=== PATIENT | male | born 1945 | race African-American/Black ===

== ENCOUNTER → 2017-02-07 | Outpatient (CLI) | payer MEDICARE, OTHER ==
[~2017-02-07] MED LIST: AML5T PO; AMOX-263 PO
[2017-02-07 14:50] LABS: Basophils # (auto) 0 uL; Basophils % (auto) 0.2 % (0.0-2.0); CONDITION Y; Eosinophils # (auto) 0.1 uL; Eosinophils % (auto) 1.7 % (0.0-7.0); Hematocrit 46.8 % (41.0-53.0); Hemoglobin 15.8 g/dL (13.5-17.5); Lymphocytes # (auto) 1.4 uL; Lymphocytes % (auto) 29.1 % (10.0-50.0); Mean Corpuscular Hemoglobin 30.7 pg (28.0-32.0); Mean Corpuscular Hgb Conc. 33.8 g/dL (32.0-36.0); Mean Corpuscular Volume 90.8 fL (80.0-100.0); Mean Platelet Volume 8.3 fL (6.9-10.8); Monocytes # (auto) 0.5 uL; Monocytes % (auto) 10.4 % (0.0-12.0); Neutrophils # (auto) 2.8 uL; Neutrophils % (auto) 58.6 % (37.0-80.0); Platelet Count (auto) 202 10^3/uL (140-450); Red Cell Distribution Width 14.4 % (11.8-14.3); White Blood Cell 4.8 10^3/uL (4.4-10.8)
[2017-02-07 15:23] LABS: Albumin 4.3 g/dL (3.4-5.0); BUN/Creatinine Ratio 12.9; Bilirubin, Total 0.7 mg/dL (0.2-1.0); Calcium 9.7 mg/dL (8.5-10.1); Potassium 3.9 mmol/L (3.5-5.1); Total Protein 8.5 g/dL (6.4-8.2)
[2017-02-07 15:55] LABS: Urine Bilirubin Negative (Negative); Urine Blood Negative /uL (Negative); Urine Color Yellow (Yellow); Urine Glucose Normal (Normal); Urine Ketone Negative (Negative); Urine Mucus FEW (None Seen); Urine Nitrite Negative (Negative); Urine RBC 4 /hpf (0 - 3); Urine Sperm PRESENT /hpf (None Seen); Urine Squamous Epithelial Cell FEW /hpf (<5); Urine pH 5.5 (5.0-8.0)
== END | disposition home or self-care (01) ==
LOC: LAB 14:18
PROVIDERS: ATTEND Internal Medicine
DX: E78.5 Hyperlipidemia, unspecified (principal); I12.9 Hypertensive chronic kidney disease with stage 1 through stage 4 chronic kidney disease, or unspecified chronic kidney disease; N18.9 Chronic kidney disease, unspecified; E11.9 Type 2 diabetes mellitus without complications
CPT/HCPCS: 36415; 80053; 80061; 81001; 82306; 82607; 84443; 85025

== ENCOUNTER → 2017-07-05 | Outpatient (CLI) | payer MEDICARE, OTHER | END | disposition home or self-care (01) | LOC: LAB 13:09 | PROVIDERS: ATTEND Urology | DX: N40.0 Benign prostatic hyperplasia without lower urinary tract symptoms (principal); N21.0 Calculus in bladder; Z90.79 Acquired absence of other genital organ(s) | CPT/HCPCS: 84153; 87086; 87088; 87186 ==

== ENCOUNTER → 2017-08-30 | Outpatient (CLI) | payer MEDICARE, OTHER | END | disposition home or self-care (01) | LOC: LAB 13:28 | PROVIDERS: ATTEND Urology | DX: N40.0 Benign prostatic hyperplasia without lower urinary tract symptoms (principal); I12.0 Hypertensive chronic kidney disease with stage 5 chronic kidney disease or end stage renal disease; E11.22 Type 2 diabetes mellitus with diabetic chronic kidney disease; N18.5 Chronic kidney disease, stage 5 | CPT/HCPCS: 84153 ==

== ENCOUNTER → 2018-02-23 | Outpatient (CLI) | payer MEDICARE, OTHER | END | disposition home or self-care (01) | LOC: LAB 10:29 | PROVIDERS: ATTEND Urology | DX: N40.0 Benign prostatic hyperplasia without lower urinary tract symptoms (principal); R97.20 Elevated prostate specific antigen [PSA] | CPT/HCPCS: 84153 ==

== ENCOUNTER → 2018-09-15 | Outpatient (CLI) | payer MEDICARE, OTHER | END | disposition home or self-care (01) | LOC: LAB 11:18 | PROVIDERS: ATTEND Internal Medicine | DX: R97.20 Elevated prostate specific antigen [PSA] (principal) | CPT/HCPCS: 84153 ==

== ENCOUNTER → 2018-11-09 | Outpatient (CLI) | payer MEDICARE, OTHER | END | disposition home or self-care (01) | LOC: XYW 09:46 | PROVIDERS: ATTEND Internal Medicine | DX: I35.1 Nonrheumatic aortic (valve) insufficiency (principal); I12.9 Hypertensive chronic kidney disease with stage 1 through stage 4 chronic kidney disease, or unspecified chronic kidney disease; N18.9 Chronic kidney disease, unspecified | CPT/HCPCS: 93306 ==

== ENCOUNTER → 2019-01-15 | Outpatient (CLI) | payer OTHER, MEDICAID ==
[~2019-01-15] VITALS: Ht 172.7 cm; Wt 72.6 kg
[~2019-01-15] MED LIST changes: +ADENOSINE 61 MG in GIVE UN-DILUTED 0 ML IV STA
[2019-01-15 12:05] VITALS: BP 144/78
== END | disposition home or self-care (01) ==
LOC: XY 11:16
PROVIDERS: ATTEND Internal Medicine
DX: I12.9 Hypertensive chronic kidney disease with stage 1 through stage 4 chronic kidney disease, or unspecified chronic kidney disease (principal); N18.9 Chronic kidney disease, unspecified
CPT/HCPCS: 78452; 93017; A9500; J0153

== ENCOUNTER → 2019-06-05 | Outpatient (CLI) | payer OTHER, MEDICAID ==
[~2019-06-05] MED LIST changes: -ADENOSINE 61 MG in GIVE UN-DILUTED 0 ML IV STA
== END | disposition home or self-care (01) ==
LOC: LAB 11:39
PROVIDERS: ATTEND Internal Medicine
DX: N40.0 Benign prostatic hyperplasia without lower urinary tract symptoms (principal); R97.20 Elevated prostate specific antigen [PSA]
CPT/HCPCS: 84153

== ENCOUNTER 2021-03-12 20:11 | Inpatient (IN) | payer OTHER, MEDICAID ==
[~2021-03-12] VITALS: Ht 172.7 cm; Wt 74.2 kg
[~2021-03-12 20:11] MED LIST changes: -AML5T PO; -AMOX-263 PO; +LABE200T7 PO; +LISI20TA28 PO; +NIFE90TA49 PO
[2021-03-12] MEDS ORDERED: SODIUM CHLORIDE 0.9% 500 ML IV ONE (20:45)
[2021-03-12 22:34] LABS: Hematocrit 34.8 % (41.0-53.0); Hemoglobin 11.3 g/dL (13.5-17.5); Mean Corpuscular Hemoglobin 27.3 pg (28.0-32.0); Mean Corpuscular Hgb Conc. 32.3 g/dL (32.0-36.0); Mean Corpuscular Volume 84.5 fL (80.0-100.0); Red Blood Cells 4.12 10^6/uL (4.5-5.90); Red Cell Distribution Width 15.6 % (11.8-14.3); White Blood Cell 4.4 10^3/uL (4.4-10.8)
[2021-03-12 22:40] LABS: Basophils % (manual) 0 (0.0-2.0); Blast Cells 0; Eosinophils % (manual) 0 (0-7); Myelocytes % 0; Promyelocytes % 0; Reactive Lymphocytes 0
[2021-03-12 22:51] LABS: Albumin 3.2 g/dL (3.4-5.0); Anion Gap 8 (5-15); Blood Urea Nitrogen 66 mg/dL (7-18); Calcium 9.4 mg/dL (8.5-10.1); Carbon Dioxide 19 mmol/L (21-32); Chloride 108 mmol/L (98-107); Glucose 112 mg/dL (74-106); Potassium 4.2 mmol/L (3.5-5.1); Sodium 135 mmol/L (136-145)
[2021-03-12 22:58] LABS: Alanine Aminotransferase 26 U/L (16-61); Alkaline Phosphatase 77 U/L (45-117); Aspartate Aminotransferase 44 U/L (15-37); BUN/Creatinine Ratio 23.5; Bilirubin, Total 0.3 mg/dL (0.2-1.0); GFR African American 28 mL/min; GFR Non-African American 23 mL/min; Total Protein 7.7 g/dL (6.4-8.2)
[2021-03-12 23:28] LABS: Band Neutrophils % (manual) 7; Lymphocytes % (manual) 27 (10.0-50.0); Metamyelocytes % 1; Monocytes % (manual) 14 (0-12)
[2021-03-13] MEDS ORDERED: NITR-87 PO (00:26)
[2021-03-13] MEDS ORDERED: ACETAMINOPHEN 325 MG TAB PO ONE (03:45)
[2021-03-13] MEDS ORDERED: ONDANSETRON HCL 4 MG/2 ML VIAL IV PRN ×2 (04:15→23:00)
[2021-03-13] MEDS ORDERED: NITROGLYCERIN 0.4 MG SL TAB SL PRN (04:15)
[2021-03-13] MEDS ORDERED: DOCUSATE SOD 100 MG CAP PO PRN (04:15)
[2021-03-13] MEDS ORDERED: MORPHINE SULFATE INJECTION 2 MG/ML SYRG IV PRN ×2 (04:15→12:30)
[2021-03-13] MEDS ORDERED: HYDROcodone-ACET 5/325MG TAB PO PRN ×2 (04:15→12:30)
[2021-03-13 06:03] LABS: Hemoglobin 11.2 g/dL (13.5-17.5); Mean Corpuscular Hemoglobin 27.3 pg (28.0-32.0); Mean Corpuscular Hgb Conc. 31.1 g/dL (32.0-36.0); Mean Corpuscular Volume 87.9 fL (80.0-100.0); Red Blood Cells 4.09 10^6/uL (4.5-5.90); Red Cell Distribution Width 15.5 % (11.8-14.3); White Blood Cell 5.8 10^3/uL (4.4-10.8)
[2021-03-13 06:08] LABS: Basophils % (manual) 0 (0.0-2.0); Blast Cells 0; Eosinophils % (manual) 0 (0-7); Metamyelocytes % 0; Myelocytes % 0; Promyelocytes % 0; Reactive Lymphocytes 0
[2021-03-13 06:27] LABS: Albumin 3.1 g/dL (3.4-5.0); BUN/Creatinine Ratio 22.1; Calcium 9.3 mg/dL (8.5-10.1); Potassium 4.4 mmol/L (3.5-5.1)
[2021-03-13 06:30] LABS: Bilirubin, Total 0.5 mg/dL (0.2-1.0); Total Protein 7.2 g/dL (6.4-8.2)
[2021-03-13] MEDS: SODIUM CHLOR 0.9% PF (SALINE LOCK) 10ML VIAL/SYR IV SCH ×4 (06:32→22:19)
[2021-03-13 09:00] VITALS: BP 155/87
[2021-03-13] MEDS: MULTIPLE VITAMIN TAB PO SCH (09:21)
[2021-03-13] MEDS ORDERED: HEPARIN SODIUM (PORCINE) 5000 UNITS/ML 1ML VIAL SC SCH (10:00)
[2021-03-13] MEDS ORDERED: ZINC SULFATE 220mg CAP or TAB PO SCH (10:00)
[2021-03-13] MEDS ORDERED: ASCORBIC ACID 500 MG TAB PO SCH (10:00)
[2021-03-13 10:08] LABS: Band Neutrophils % (manual) 1; Lymphocytes % (manual) 22 (10.0-50.0); Monocytes % (manual) 20 (0-12)
[2021-03-13] MEDS: FAMOTIDINE (10MG/ML) 2ML VL IV SCH (11:27)
[2021-03-13] MEDS ORDERED: LISI-285 PO (11:51)
[2021-03-13] MEDS ORDERED: ATOR-47 PO (11:51)
[2021-03-13] MEDS ORDERED: FINASTERIDE 5 MG TAB PO ONE (12:30)
[2021-03-13] MEDS ORDERED: ERTAPENEM SOD INJ 0.5 GM in SODIUM CHL 0.9% 50 ML IV ONE (13:00)
[2021-03-13 13:18] VITALS: BP 163/80
[2021-03-13] MEDS ORDERED: LIDOCAINE 2% JELLY 11ml (GLYDO) UR ONE (13:45)
[2021-03-13] MEDS ORDERED: LIDOCAINE 1% (LOCAL ANESTH.) PF 5ml SDV ONE (14:03)
[2021-03-13] MEDS: SODIUM CHLORIDE 0.9% 1,000 ML IV SCH (14:03)
[2021-03-13] MEDS ORDERED: HYDROmorphone HCL 2 MG/ML VL IV ONE (15:00)
[2021-03-13] MEDS: TAMSULOSIN HYDROCHLORIDE 0.4 MG CAP PO SCH (16:51)
[2021-03-13 17:00] VITALS: BP 89/52
[2021-03-13 19:17] LABS: Urine Blood 3+ /uL (Negative); Urine Specific Gravity 1.012 (1.001-1.035); Urine WBC 235 /hpf (0 - 3)
[2021-03-13 19:33] LABS: Urine Bacteria MODERATE /hpf (None Seen)
[2021-03-13] MEDS ORDERED: PROPOFOL 10 MG/ML 20 ML IV ONE (20:49)
[2021-03-13] MEDS ORDERED: HYDROmorphone HCL 2 MG/ML VL ONE (21:34)
[2021-03-13] MEDS ORDERED: ONDANSETRON HCL 4 MG/2 ML VIAL ONE (22:01)
[2021-03-13] MEDS ORDERED: PHENYLEPHRINE HCL 10 MG/ML VL ONE (22:01)
[2021-03-13] MEDS ORDERED: DexAMETHasone SOD PHOS 10MG/1ML VIAL INJ ONE (22:01)
[2021-03-13] MEDS ORDERED: SODIUM CHLORIDE LOCK 10 ML ONE (22:01)
[2021-03-13] MEDS ORDERED: ceFAZolin 1GM VL ONE (22:01)
[2021-03-13] MEDS ORDERED: METOCLOPRAMIDE HCL 5MG/ml INJ 2ml VIAL IV PRN (23:00)
[2021-03-13] MEDS ORDERED: fentaNYL CITRATE 100 MCG/2 ML VL IV PRN (23:00)
[2021-03-13] MEDS ORDERED: HYDROmorphone HCL 2 MG/ML VL IV PRN ×2 (23:00)
[2021-03-13] MEDS ORDERED: ePHEDrine SULFATE 50 MG/ML AMP IV PRN (23:00)
[2021-03-14 05:00] VITALS: BP 119/62
[2021-03-14] MEDS: SODIUM CHLORIDE 0.9% 1,000 ML IV SCH ×2 (05:04→16:43)
[2021-03-14 05:36] LABS: Basophils # (auto) 0 10 ^3/uL (0-0.2); Basophils % (auto) 0.1 % (0.0-2.0); Eosinophils # (auto) 0 10 ^3/uL (0-0.8); Hematocrit 29.6 % (41.0-53.0); Hemoglobin 9.2 g/dL (13.5-17.5); Lymphocytes # (auto) 0.5 10 ^3/uL (0.4-5.4); Lymphocytes % (auto) 7.8 % (10.0-50.0); Mean Corpuscular Hemoglobin 27.3 pg (28.0-32.0); Mean Corpuscular Hgb Conc. 31.2 g/dL (32.0-36.0); Mean Corpuscular Volume 87.5 fL (80.0-100.0); Monocytes # (auto) 0.9 10 ^3/uL (0-1.3); Monocytes % (auto) 13.9 % (0.0-12.0); Neutrophils % (auto) 78.2 % (37.0-80.0); Red Blood Cells 3.39 10^6/uL (4.5-5.90); Red Cell Distribution Width 15.6 % (11.8-14.3); White Blood Cell 6.4 10^3/uL (4.4-10.8)
[2021-03-14 05:37] LABS: Albumin 2.5 g/dL (3.4-5.0); Calcium 8.7 mg/dL (8.5-10.1); Potassium 4.4 mmol/L (3.5-5.1)
[2021-03-14 05:40] LABS: INR 1.1 (0.9-1.15); Partial Thromboplastin Time 29.3 sec (23.6-33.0)
[2021-03-14 05:43] LABS: Bilirubin, Total 0.2 mg/dL (0.2-1.0); Total Protein 6.3 g/dL (6.4-8.2)
[2021-03-14] MEDS: SODIUM CHLOR 0.9% PF (SALINE LOCK) 10ML VIAL/SYR IV SCH ×3 (07:06→22:00)
[2021-03-14 09:00] VITALS: BP 103/61
[2021-03-14] MEDS: FINASTERIDE 5 MG TAB PO SCH (09:57)
[2021-03-14] MEDS: FAMOTIDINE (10MG/ML) 2ML VL IV SCH (09:57)
[2021-03-14] MEDS: ERTAPENEM SOD INJ 0.5 GM in SODIUM CHL 0.9% 50 ML IV SCH (09:57)
[2021-03-14] MEDS: MULTIPLE VITAMIN TAB PO SCH (09:57)
[2021-03-14 13:00] VITALS: BP 142/72
[2021-03-14 16:45] VITALS: BP 125/75
[2021-03-14] MEDS: TAMSULOSIN HYDROCHLORIDE 0.4 MG CAP PO SCH (18:17)
[2021-03-14 22:16] VITALS: BP 124/57
[2021-03-14] MEDS: ACETAMINOPHEN 325 MG TAB PO PRN (23:39)
[2021-03-15 05:16] VITALS: BP 122/67
[2021-03-15] MEDS: SODIUM CHLOR 0.9% PF (SALINE LOCK) 10ML VIAL/SYR IV SCH ×3 (06:00→22:00)
[2021-03-15 06:06] LABS: Hematocrit 27.9 % (41.0-53.0); Hemoglobin 9.2 g/dL (13.5-17.5); Mean Corpuscular Hemoglobin 28.2 pg (28.0-32.0); Mean Corpuscular Hgb Conc. 33.1 g/dL (32.0-36.0); Mean Corpuscular Volume 85.2 fL (80.0-100.0); Red Blood Cells 3.27 10^6/uL (4.5-5.90); Red Cell Distribution Width 15.3 % (11.8-14.3); White Blood Cell 8.1 10^3/uL (4.4-10.8)
[2021-03-15 06:16] LABS: Basophils % (manual) 0 (0.0-2.0); Blast Cells 0; Eosinophils % (manual) 0 (0-7); Metamyelocytes % 0; Myelocytes % 0; Promyelocytes % 0; Reactive Lymphocytes 0
[2021-03-15 06:27] LABS: Potassium 3.9 mmol/L (3.5-5.1)
[2021-03-15 06:32] LABS: BUN/Creatinine Ratio 18.8; Calcium 8.8 mg/dL (8.5-10.1)
[2021-03-15 07:24] LABS: Band Neutrophils % (manual) 2; Lymphocytes % (manual) 20 (10.0-50.0); Monocytes % (manual) 11 (0-12)
[2021-03-15 08:15] VITALS: BP 134/71
[2021-03-15] MEDS: ACETAMINOPHEN 325 MG TAB PO PRN (10:01)
[2021-03-15] MEDS: FAMOTIDINE (10MG/ML) 2ML VL IV SCH (10:01)
[2021-03-15] MEDS: MULTIPLE VITAMIN TAB PO SCH (10:01)
[2021-03-15] MEDS: FINASTERIDE 5 MG TAB PO SCH (10:01)
[2021-03-15] MEDS: ERTAPENEM SOD INJ 0.5 GM in SODIUM CHL 0.9% 50 ML IV SCH (10:02)
[2021-03-15 17:00] VITALS: BP 145/75
[2021-03-15] MEDS: LORazepam 2MG/ML-1ML VIAL IV PRN (17:02)
[2021-03-15] MEDS: TAMSULOSIN HYDROCHLORIDE 0.4 MG CAP PO SCH (18:29)
[2021-03-15] MEDS: SODIUM CHLORIDE 0.9% 1,000 ML IV SCH (18:29)
[2021-03-15] MEDS: QUEtiapine FUMARATE 25 MG TAB PO SCH (22:46)
[2021-03-16] MEDS: LORazepam 2MG/ML-1ML VIAL IV PRN (00:06)
[2021-03-16] MEDS: SODIUM CHLOR 0.9% PF (SALINE LOCK) 10ML VIAL/SYR IV SCH ×3 (06:00→22:49)
[2021-03-16 06:59] LABS: BUN/Creatinine Ratio 16.1; Calcium 8.5 mg/dL (8.5-10.1); Potassium 3.7 mmol/L (3.5-5.1)
[2021-03-16 07:13] LABS: Basophils # (auto) 0 10 ^3/uL (0-0.2); Eosinophils # (auto) 0.2 10 ^3/uL (0-0.8); Hemoglobin 8.2 g/dL (13.5-17.5); Neutrophils # (auto) 4.9 10 ^3/uL (1.6-8.6); Nucleated Red Blood Cells % 0.1 %
[2021-03-16 07:16] LABS: Basophils % (auto) 0.5 % (0.0-2.0); Eosinophils % (auto) 2.5 % (0.0-7.0); Hematocrit 24.7 % (41.0-53.0); Mean Corpuscular Hemoglobin 28.4 pg (28.0-32.0); Mean Corpuscular Hgb Conc. 33.4 g/dL (32.0-36.0); Neutrophils % (auto) 63.5 % (37.0-80.0); Red Cell Distribution Width 15.6 % (11.8-14.3); White Blood Cell 7.7 10^3/uL (4.4-10.8)
[2021-03-16 07:28] LABS: Lymphocytes # (auto) 1.2 10 ^3/uL (0.4-5.4); Lymphocytes % (auto) 16.7 % (10.0-50.0); Monocytes # (auto) 1.3 10 ^3/uL (0-1.3); Monocytes % (auto) 16.8 % (0.0-12.0)
[2021-03-16] MEDS: SODIUM CHLORIDE 0.9% 1,000 ML IV SCH (07:37)
[2021-03-16 09:00] VITALS: BP 140/76
[2021-03-16] MEDS: ERTAPENEM SOD INJ 0.5 GM in SODIUM CHL 0.9% 50 ML IV SCH (11:02)
[2021-03-16] MEDS: FAMOTIDINE (10MG/ML) 2ML VL IV SCH (11:02)
[2021-03-16] MEDS: MULTIPLE VITAMIN TAB PO SCH (11:04)
[2021-03-16] MEDS: FINASTERIDE 5 MG TAB PO SCH (11:06)
[2021-03-16 13:00] VITALS: BP 138/80
[2021-03-16] MEDS: SOD CHL 0.45% 1,000 ML IV SCH (15:47)
[2021-03-16] MEDS: Ensure HIGH Protein Chocolate 8oz Bottle PO SCH ×2 (15:48→17:29)
[2021-03-16] MEDS: TAMSULOSIN HYDROCHLORIDE 0.4 MG CAP PO SCH (17:29)
[2021-03-16 17:37] VITALS: BP 144/79
[2021-03-16 22:00] VITALS: BP 137/64
[2021-03-16] MEDS: QUEtiapine FUMARATE 25 MG TAB PO SCH (22:48)
[2021-03-17] MEDS: SOD CHL 0.45% 1,000 ML IV SCH ×2 (01:24→14:09)
[2021-03-17 05:00] VITALS: BP 136/72
[2021-03-17 05:17] LABS: Basophils # (auto) 0 10 ^3/uL (0-0.2); Eosinophils # (auto) 0.2 10 ^3/uL (0-0.8); Hemoglobin 7.9 g/dL (13.5-17.5); Mean Corpuscular Volume 86.3 fL (80.0-100.0); Neutrophils # (auto) 4.6 10 ^3/uL (1.6-8.6); Nucleated Red Blood Cells % 0.1 %; White Blood Cell 7.5 10^3/uL (4.4-10.8)
[2021-03-17 05:19] LABS: Basophils % (auto) 0.6 % (0.0-2.0); Eosinophils % (auto) 3.1 % (0.0-7.0); Hematocrit 24.7 % (41.0-53.0); Lymphocytes # (auto) 1.5 10 ^3/uL (0.4-5.4); Lymphocytes % (auto) 19.6 % (10.0-50.0); Mean Corpuscular Hemoglobin 27.8 pg (28.0-32.0); Mean Corpuscular Hgb Conc. 32.2 g/dL (32.0-36.0); Monocytes # (auto) 1.2 10 ^3/uL (0-1.3); Monocytes % (auto) 16.1 % (0.0-12.0); Neutrophils % (auto) 60.6 % (37.0-80.0); Red Blood Cells 2.86 10^6/uL (4.5-5.90); Red Cell Distribution Width 15.4 % (11.8-14.3)
[2021-03-17 05:27] LABS: BUN/Creatinine Ratio 16.2; Calcium 8.4 mg/dL (8.5-10.1)
[2021-03-17] MEDS: SODIUM CHLOR 0.9% PF (SALINE LOCK) 10ML VIAL/SYR IV SCH ×2 (05:30→14:09)
[2021-03-17] MEDS: Ensure HIGH Protein Chocolate 8oz Bottle PO SCH ×2 (08:12→12:30)
[2021-03-17 09:00] VITALS: BP 131/70
[2021-03-17] MEDS: FINASTERIDE 5 MG TAB PO SCH (09:54)
[2021-03-17] MEDS: MULTIPLE VITAMIN TAB PO SCH (09:54)
[2021-03-17] MEDS: ERTAPENEM SOD INJ 0.5 GM in SODIUM CHL 0.9% 50 ML IV SCH (12:30)
[2021-03-17 13:00] VITALS: BP 151/84
[2021-03-17 17:00] VITALS: BP 167/81
== END 2021-03-17 18:03 | disposition home health service (06) | DRG 853 ==
LOC: ER 20:11 → OVERFLOW 03-13 04:06 → WEST WING 03-13 08:46 → TELE-WESTW 03-13 22:57 → WEST WING 03-16 13:39
PROVIDERS: ADMIT Nurse Practitioner Family; ATTEND Internal Medicine
PROC: 0TCC8ZZ Extirpation of Matter from Bladder Neck, Via Natural or Artificial Opening Endoscopic (ICD-10-PCS; 2021-03-13)
PROC: 0T9B30Z Drainage of Bladder with Drainage Device, Percutaneous Approach (ICD-10-PCS; 2021-03-13)
PROC: 0T5C8ZZ Destruction of Bladder Neck, Via Natural or Artificial Opening Endoscopic (ICD-10-PCS; principal; 2021-03-13 21:40)
DX: A41.9 Sepsis, unspecified organism (principal); N17.0 Acute kidney failure with tubular necrosis; G92.8 Other toxic encephalopathy; N13.6 Pyonephrosis; N13.8 Other obstructive and reflux uropathy; N40.0 Benign prostatic hyperplasia without lower urinary tract symptoms; E88.09 Other disorders of plasma-protein metabolism, not elsewhere classified; N18.9 Chronic kidney disease, unspecified; Z20.822 Contact with and (suspected) exposure to COVID-19; I95.9 Hypotension, unspecified; I12.9 Hypertensive chronic kidney disease with stage 1 through stage 4 chronic kidney disease, or unspecified chronic kidney disease; N21.0 Calculus in bladder; N40.1 Benign prostatic hyperplasia with lower urinary tract symptoms; D64.9 Anemia, unspecified; Z79.899 Other long term (current) drug therapy; Z86.73 Personal history of transient ischemic attack (TIA), and cerebral infarction without residual deficits; Z87.891 Personal history of nicotine dependence; R31.0 Gross hematuria
CPT/HCPCS: 36415; 71045; 74176; 76942; 80048; 80053; 81001; 83036; 83605; 84154; 84484; 85007; 85025; 85027; 85610; 85730; 86850; 86900; 86901; 87040; 87086; 87426; 93005; 96360; 97163; G0378; J0690; J1100; J1335; J2405; J2704; J3490

== ENCOUNTER 2021-04-08 14:32 | Inpatient (IN) | payer OTHER, MEDICAID ==
[~2021-04-08] VITALS: Ht 175.3 cm; Wt 72.5 kg
[~2021-04-08 14:32] MED LIST changes: +ATOR-47 PO; +LISI-285 PO; -LISI20TA28 PO
[2021-04-08 15:39] LABS: Basophils # (auto) 0 10 ^3/uL (0-0.2); Basophils % (auto) 0.2 % (0.0-2.0); Eosinophils # (auto) 0 10 ^3/uL (0-0.8); Hematocrit 32.4 % (41.0-53.0); Hemoglobin 10.2 g/dL (13.5-17.5); Lymphocytes # (auto) 1.2 10 ^3/uL (0.4-5.4); Lymphocytes % (auto) 6.6 % (10.0-50.0); Mean Corpuscular Hemoglobin 27.8 pg (28.0-32.0); Mean Corpuscular Hgb Conc. 31.5 g/dL (32.0-36.0); Monocytes # (auto) 1.6 10 ^3/uL (0-1.3); Monocytes % (auto) 8.8 % (0.0-12.0); Neutrophils # (auto) 15.3 10 ^3/uL (1.6-8.6); Neutrophils % (auto) 84.4 % (37.0-80.0); Nucleated Red Blood Cells % 0.2 %; Red Blood Cells 3.69 10^6/uL (4.5-5.90); Red Cell Distribution Width 16.8 % (11.8-14.3); White Blood Cell 18.1 10^3/uL (4.4-10.8)
[2021-04-08 16:03] LABS: Albumin 2.5 g/dL (3.4-5.0); Calcium 9.1 mg/dL (8.5-10.1); Potassium 3.9 mmol/L (3.5-5.1)
[2021-04-08 16:08] LABS: BUN/Creatinine Ratio 34.5; Bilirubin, Total 0.2 mg/dL (0.2-1.0); Total Protein 6.1 g/dL (6.4-8.2)
[2021-04-08] MEDS ORDERED: MORPHINE SULFATE 4 MG/ML SYR/VIAL IV ONE (16:30)
[2021-04-08] MEDS ORDERED: SODIUM CHLORIDE 0.9% 500 ML IVB ONE (16:30)
[2021-04-08] MEDS ORDERED: PROMETHAZINE HCL 25 MG/ML 1ML IV PRN (16:30)
[2021-04-08] MEDS ORDERED: SODIUM CHLORIDE 0.9% 1,000 ML IV ONE (16:30)
[2021-04-08 16:40] LABS: Magnesium 2.6 mg/dL (1.6-2.6)
[2021-04-08] MEDS: ATORVASTATIN 20 MG TAB PO SCH (22:00)
[2021-04-08] MEDS ORDERED: TEMAZEPAM 15 MG CAP PO PRN (22:00)
[2021-04-08] MEDS ORDERED: SODIUM CHLORIDE 0.9% 1,000 ML IV SCH (22:00)
[2021-04-08] MEDS: NIFEdipine ER 30 MG TAB PO SCH (22:00)
[2021-04-08] MEDS ORDERED: HYDROcodone-ACET 5/325MG TAB PO PRN (22:00)
[2021-04-08] MEDS ORDERED: cefTRIAXone 1GM/50ML D5W 50 ML IV ONE (22:00)
[2021-04-08] MEDS ORDERED: ONDANSETRON HCL 4 MG/2 ML VIAL IV PRN (22:00)
[2021-04-08] MEDS ORDERED: ACETAMINOPHEN 325 MG TAB PO PRN (22:00)
[2021-04-08 22:25] LABS: Urine Bacteria FEW /hpf (None Seen); Urine Blood 3+ /uL (Negative); Urine Specific Gravity 1.019 (1.001-1.035); Urine WBC 14 /hpf (0 - 3)
[2021-04-08 22:32] LABS: Amphetamine Screen, Urine NEGATIVE (NEGATIVE); Barbiturate Scree,Urine NEGATIVE (NEGATIVE); Benzodiazephine Screen, Urine NEGATIVE (NEGATIVE); Cannabinoid Screen, Urine NEGATIVE (NEGATIVE); Cocaine Screen, Urine NEGATIVE (NEGATIVE); Opiate Scree,Urine NEGATIVE (NEGATIVE); Phencyclidine Screen, Urine NEGATIVE (NEGATIVE)
[2021-04-08] MEDS ORDERED: DOPamine 1600MCG/ML D5W 250 ML IV SCH (23:00)
[2021-04-08 23:22] LABS: Hemoglobin 8.7 g/dL (13.5-17.5)
[2021-04-08 23:24] LABS: Hematocrit 28.3 % (41.0-53.0)
[2021-04-09] VITALS (7 sets, daily range): BP systolic 94–137; BP diastolic 49–82
[2021-04-09 02:23] LABS: INR 1.07 (0.9-1.15); Partial Thromboplastin Time 23.5 sec (23.6-33.0)
[2021-04-09 06:33] LABS: Calcium 8.4 mg/dL (8.5-10.1)
[2021-04-09 06:40] LABS: Basophils # (auto) 0 10 ^3/uL (0-0.2); Basophils % (auto) 0.3 % (0.0-2.0); Hemoglobin 8.5 g/dL (13.5-17.5); Lymphocytes # (auto) 1.6 10 ^3/uL (0.4-5.4); Lymphocytes % (auto) 10.3 % (10.0-50.0)
[2021-04-09 06:41] LABS: BUN/Creatinine Ratio 42.4; Bilirubin, Total 0.2 mg/dL (0.2-1.0); Total Protein 5.2 g/dL (6.4-8.2)
[2021-04-09 06:43] LABS: Eosinophils # (auto) 0.1 10 ^3/uL (0-0.8); Eosinophils % (auto) 0.6 % (0.0-7.0); Monocytes # (auto) 1.8 10 ^3/uL (0-1.3); Monocytes % (auto) 11.9 % (0.0-12.0); Neutrophils # (auto) 11.7 10 ^3/uL (1.6-8.6); Neutrophils % (auto) 76.9 % (37.0-80.0)
[2021-04-09 06:58] LABS: Mean Corpuscular Volume 93.4 fL (80.0-100.0); Red Blood Cells 2.99 10^6/uL (4.5-5.90); White Blood Cell 15.3 10^3/uL (4.4-10.8)
[2021-04-09 06:59] LABS: Mean Corpuscular Hemoglobin 28.4 pg (28.0-32.0); Mean Corpuscular Hgb Conc. 30.4 g/dL (32.0-36.0); Red Cell Distribution Width 19.4 % (11.8-14.3)
[2021-04-09 09:24] LABS: Hematocrit 31.7 % (41.0-53.0); Hemoglobin 8.6 g/dL (13.5-17.5)
[2021-04-09] MEDS ORDERED: LISINOPRIL 20 MG TAB PO SCH (10:00)
[2021-04-09] MEDS ORDERED: PANTOPRAZOLE 40 MG TAB PO SCH (10:00)
[2021-04-09] MEDS: FINASTERIDE 5 MG TAB PO SCH (10:02)
[2021-04-09] MEDS: cefTRIAXone 1GM/50ML D5W 50 ML IV SCH (10:02)
[2021-04-09] MEDS ORDERED: LACTATED RINGER'S 1,000 ML IV ONE (11:45)
[2021-04-09] MEDS ORDERED: LEVE500T32 PO (15:58)
[2021-04-09] MEDS ORDERED: TAMSULOSIN HYDROCHLORIDE 0.4 MG CAP PO SCH (18:00)
[2021-04-09] MEDS: NIFEdipine ER 30 MG TAB PO SCH (22:00)
[2021-04-09] MEDS: ATORVASTATIN 20 MG TAB PO SCH (22:03)
[2021-04-09] MEDS: levETIRAcetam 500 MG TAB PO SCH (22:03)
[2021-04-10 05:00] VITALS: BP_SYST 118; BP_SYST 154; BP_DIAS 63; BP_DIAS 67
[2021-04-10 05:40] LABS: BUN/Creatinine Ratio 24.8; Blood Urea Nitrogen 35 mg/dL (7-18); Chloride 121 mmol/L (98-107); GFR African American 63 mL/min; GFR Non-African American 52 mL/min; Potassium 4.2 mmol/L (3.5-5.1); Sodium 149 mmol/L (136-145)
[2021-04-10 05:43] LABS: Anion Gap 8 (5-15); Calcium 8.5 mg/dL (8.5-10.1); Carbon Dioxide 20 mmol/L (21-32); Glucose 78 mg/dL (74-106)
[2021-04-10 05:44] LABS: Hemoglobin 8.1 g/dL (13.5-17.5); Mean Corpuscular Hgb Conc. 31.7 g/dL (32.0-36.0)
[2021-04-10 05:47] LABS: Hematocrit 25.5 % (41.0-53.0); Mean Corpuscular Hemoglobin 28.2 pg (28.0-32.0); Mean Corpuscular Volume 88.9 fL (80.0-100.0); Red Blood Cells 2.87 10^6/uL (4.5-5.90); Red Cell Distribution Width 19.5 % (11.8-14.3); White Blood Cell 9.9 10^3/uL (4.4-10.8)
[2021-04-10 05:53] LABS: Basophils % (manual) 0 (0.0-2.0); Blast Cells 0; Eosinophils % (manual) 0 (0-7); Metamyelocytes % 0; Myelocytes % 0; Promyelocytes % 0; Reactive Lymphocytes 0
[2021-04-10 06:48] LABS: Band Neutrophils % (manual) 1; Lymphocytes % (manual) 15 (10.0-50.0); Monocytes % (manual) 7 (0-12)
[2021-04-10 08:00] VITALS: BP 97/54
[2021-04-10 09:32] VITALS: BP 97/54
[2021-04-10 13:26] VITALS: BP 114/64
[2021-04-10] MEDS: cefTRIAXone 1GM/50ML D5W 50 ML IV SCH (13:46)
[2021-04-10] MEDS: levETIRAcetam 500 MG TAB PO SCH (13:47)
[2021-04-10] MEDS: FINASTERIDE 5 MG TAB PO SCH (13:47)
[2021-04-10 14:06] VITALS: BP 114/64
== END 2021-04-10 17:34 | disposition home or self-care (01) | DRG 871 ==
LOC: ER 14:32 → EDBD 14:32 → OVERFLOW 21:54 → CENTRAL 04-09 02:21
PROVIDERS: ADMIT Nurse Practitioner; ATTEND Internal Medicine
DX: A41.9 Sepsis, unspecified organism (principal); E43 Unspecified severe protein-calorie malnutrition; N17.0 Acute kidney failure with tubular necrosis; N30.01 Acute cystitis with hematuria; D50.9 Iron deficiency anemia, unspecified; G40.909 Epilepsy, unspecified, not intractable, without status epilepticus; I12.9 Hypertensive chronic kidney disease with stage 1 through stage 4 chronic kidney disease, or unspecified chronic kidney disease; N18.31 Chronic kidney disease, stage 3a; E27.8 Other specified disorders of adrenal gland; N40.1 Benign prostatic hyperplasia with lower urinary tract symptoms; R33.8 Other retention of urine; Z86.73 Personal history of transient ischemic attack (TIA), and cerebral infarction without residual deficits; Z68.23 Body mass index [BMI] 23.0-23.9, adult; Z20.822 Contact with and (suspected) exposure to COVID-19
CPT/HCPCS: 36415; 71045; 74176; 80048; 80053; 80307; 81001; 83605; 83690; 83735; 84443; 84484; 85007; 85014; 85018; 85025; 85027; 85610; 85730; 86850; 86900; 86901; 87081; 87086; 87426; 93005; 96361; 96365; 96375; G0378; J0696; J2405

== ENCOUNTER 2021-09-18 13:06 | Inpatient (IN) | payer OTHER, MEDICAID ==
[~2021-09-18] VITALS: Ht 172.7 cm; Wt 69.2 kg
[~2021-09-18 13:06] MED LIST changes: +LEVE500T32 PO
[2021-09-18] MEDS ORDERED: SODIUM CHLORIDE 0.9% 500 ML IV ONE (14:00)
[2021-09-18 14:31] LABS: Basophils # (auto) 0 10 ^3/uL (0-0.2); Basophils % (auto) 0.3 % (0.0-2.0); Eosinophils # (auto) 0.1 10 ^3/uL (0-0.8); Eosinophils % (auto) 0.6 % (0.0-7.0); Hematocrit 36.9 % (41.0-53.0); Hemoglobin 12.4 g/dL (13.5-17.5); Lymphocytes # (auto) 0.8 10 ^3/uL (0.4-5.4); Lymphocytes % (auto) 8.1 % (10.0-50.0); Mean Corpuscular Hemoglobin 30.7 pg (28.0-32.0); Mean Corpuscular Hgb Conc. 33.6 g/dL (32.0-36.0); Mean Corpuscular Volume 91.4 fL (80.0-100.0); Monocytes % (auto) 10.2 % (0.0-12.0); Neutrophils # (auto) 8.1 10 ^3/uL (1.6-8.6); Neutrophils % (auto) 80.8 % (37.0-80.0); Nucleated Red Blood Cells % 0.1 %; Red Blood Cells 4.04 10^6/uL (4.5-5.90); Red Cell Distribution Width 14.9 % (11.8-14.3)
[2021-09-18 14:47] LABS: Alanine Aminotransferase 68 U/L (16-61); Anion Gap 10 (5-15); Aspartate Aminotransferase 51 U/L (15-37); Blood Urea Nitrogen 40 mg/dL (7-18); Calcium 9.7 mg/dL (8.5-10.1); Carbon Dioxide 21 mmol/L (21-32); Chloride 113 mmol/L (98-107); GFR African American 47 mL/min; GFR Non-African American 39 mL/min; Glucose 115 mg/dL (74-106); Potassium 3.8 mmol/L (3.5-5.1); Sodium 144 mmol/L (136-145)
[2021-09-18 14:49] LABS: Alkaline Phosphatase 97 U/L (45-117); Bilirubin, Total 0.4 mg/dL (0.2-1.0)
[2021-09-18 18:00] LABS: Urine Bacteria FEW /hpf (None Seen); Urine Blood 2+ /uL (Negative); Urine Budding Yeast MODERATE /hpf (None Seen); Urine Mucus FEW (None Seen); Urine Specific Gravity 1.017 (1.001-1.035); Urine WBC 1457 /hpf (0 - 3); Urine WBC Clumps PRESENT /hpf (None Seen)
[2021-09-18] MEDS ORDERED: cefTRIAXone 1GM/50ML D5W 50 ML IV ONE (20:30)
[2021-09-18] MEDS ORDERED: PATIENTS OWN MEDICATION (Lisinopril & Hydrochlorothiazi (Lisinopril/Hydrochlorothi) 1 TAB) PO SCH (23:15)
[2021-09-18] MEDS ORDERED: MORPHINE SULFATE INJECTION 2 MG/ML SYRG IV PRN (23:15)
[2021-09-18] MEDS ORDERED: ONDANSETRON HCL 4 MG/2 ML VIAL IV PRN (23:15)
[2021-09-18] MEDS ORDERED: HYDROcodone-ACET 5/325MG TAB PO PRN (23:15)
[2021-09-18] MEDS ORDERED: CIPROFLOXACIN 400MG/200ML 200 ML IV ONE (23:15)
[2021-09-18] MEDS ORDERED: ACETAMINOPHEN 325 MG TAB PO PRN (23:15)
[2021-09-18] MEDS ORDERED: IOHEXOL 300 MG/ML 100ML BOTTLE IJ ONE (23:25)
[2021-09-19 00:22] VITALS: BP 146/79
[2021-09-19 01:31] VITALS: BP 146/79
[2021-09-19] MEDS ORDERED: LORazepam 2MG/ML-1ML VIAL IV PRN (05:15)
[2021-09-19] MEDS: SODIUM CHLOR 0.9% PF (SALINE LOCK) 10ML VIAL/SYR IV SCH ×3 (06:16→21:04)
[2021-09-19 09:00] VITALS: BP 152/85
[2021-09-19] MEDS: ATORVASTATIN 20 MG TAB PO SCH (10:08)
[2021-09-19] MEDS: NIFEdipine ER 30 MG TAB PO SCH (10:08)
[2021-09-19] MEDS: LABETALOL HCL 200 MG TAB PO SCH (10:09)
[2021-09-19] MEDS: LISINOPRIL 20 MG TAB PO SCH (10:09)
[2021-09-19] MEDS: HCTZ 25 MG TAB PO SCH (10:10)
[2021-09-19] MEDS: levETIRAcetam 500 MG TAB PO SCH ×2 (10:11→21:05)
[2021-09-19] MEDS ORDERED: levoFLOXacin 750MG 150 ML IV ONE (11:00)
[2021-09-19 13:00] VITALS: BP 132/78
[2021-09-19 17:00] VITALS: BP 99/65
[2021-09-19 22:00] VITALS: BP 115/73
[2021-09-20] VITALS (7 sets, daily range): BP systolic 112–165; BP diastolic 64–83
[2021-09-20] MEDS: SODIUM CHLOR 0.9% PF (SALINE LOCK) 10ML VIAL/SYR IV SCH ×3 (05:11→22:04)
[2021-09-20 05:53] LABS: Basophils # (auto) 0 10 ^3/uL (0-0.2); Basophils % (auto) 0.4 % (0.0-2.0); Eosinophils # (auto) 0.1 10 ^3/uL (0-0.8); Eosinophils % (auto) 0.8 % (0.0-7.0); Hematocrit 34.8 % (41.0-53.0); Hemoglobin 11.8 g/dL (13.5-17.5); Lymphocytes # (auto) 1.1 10 ^3/uL (0.4-5.4); Lymphocytes % (auto) 12.1 % (10.0-50.0); Mean Corpuscular Hemoglobin 30.9 pg (28.0-32.0); Mean Corpuscular Volume 90.7 fL (80.0-100.0); Monocytes # (auto) 1.2 10 ^3/uL (0-1.3); Monocytes % (auto) 13.2 % (0.0-12.0); Neutrophils # (auto) 6.5 10 ^3/uL (1.6-8.6); Neutrophils % (auto) 73.5 % (37.0-80.0); Red Blood Cells 3.83 10^6/uL (4.5-5.90); Red Cell Distribution Width 14.7 % (11.8-14.3); White Blood Cell 8.9 10^3/uL (4.4-10.8)
[2021-09-20 05:55] LABS: BUN/Creatinine Ratio 27.3; Calcium 9.6 mg/dL (8.5-10.1); Potassium 3.5 mmol/L (3.5-5.1)
[2021-09-20] MEDS ORDERED: levoFLOXacin 750MG 150 ML IV SCH (10:00)
[2021-09-20] MEDS ORDERED: cefTRIAXone 1GM/50ML D5W 50 ML IV ONE (10:15)
[2021-09-20] MEDS: HCTZ 25 MG TAB PO SCH (11:50)
[2021-09-20] MEDS: ATORVASTATIN 20 MG TAB PO SCH (11:51)
[2021-09-20] MEDS: levETIRAcetam 500 MG TAB PO SCH ×2 (11:51→22:04)
[2021-09-20] MEDS: LABETALOL HCL 200 MG TAB PO SCH (11:51)
[2021-09-20] MEDS: NIFEdipine ER 30 MG TAB PO SCH (11:52)
[2021-09-20] MEDS: LISINOPRIL 20 MG TAB PO SCH (11:53)
[2021-09-20 15:11] LABS: Basophils # (auto) 0 10 ^3/uL (0-0.2); Basophils % (auto) 0.5 % (0.0-2.0); Eosinophils # (auto) 0 10 ^3/uL (0-0.8); Eosinophils % (auto) 0.3 % (0.0-7.0); Hematocrit 36.6 % (41.0-53.0); Hemoglobin 12.5 g/dL (13.5-17.5); Lymphocytes # (auto) 0.7 10 ^3/uL (0.4-5.4); Lymphocytes % (auto) 8.8 % (10.0-50.0); Mean Corpuscular Hemoglobin 30.8 pg (28.0-32.0); Mean Corpuscular Hgb Conc. 34.3 g/dL (32.0-36.0); Monocytes # (auto) 0.8 10 ^3/uL (0-1.3); Monocytes % (auto) 10.1 % (0.0-12.0); Neutrophils # (auto) 6.4 10 ^3/uL (1.6-8.6); Neutrophils % (auto) 80.3 % (37.0-80.0); Red Blood Cells 4.06 10^6/uL (4.5-5.90); Red Cell Distribution Width 14.7 % (11.8-14.3)
[2021-09-20 15:27] LABS: Albumin 2.6 g/dL (3.4-5.0); BUN/Creatinine Ratio 20.3; Calcium 9.8 mg/dL (8.5-10.1)
[2021-09-20 15:29] LABS: Bilirubin, Total 0.4 mg/dL (0.2-1.0); Total Protein 7.4 g/dL (6.4-8.2)
[2021-09-21 05:00] VITALS: BP 176/95
[2021-09-21] MEDS: SODIUM CHLOR 0.9% PF (SALINE LOCK) 10ML VIAL/SYR IV SCH ×2 (06:00→14:00)
[2021-09-21] MEDS ORDERED: LABETALOL HCL 5 MG/ML 4ML SYRINGE IV ONE (06:00)
[2021-09-21 06:17] LABS: INR 1.13 (0.9-1.15); Partial Thromboplastin Time 31.6 sec (23.6-33.0)
[2021-09-21 09:00] VITALS: BP 132/72
[2021-09-21] MEDS ORDERED: cefTRIAXone 1GM/50ML D5W 50 ML IV SCH (09:00)
[2021-09-21] MEDS: HCTZ 25 MG TAB PO SCH (10:47)
[2021-09-21] MEDS: levETIRAcetam 500 MG TAB PO SCH (10:47)
[2021-09-21] MEDS: ATORVASTATIN 20 MG TAB PO SCH (10:48)
[2021-09-21] MEDS: LABETALOL HCL 200 MG TAB PO SCH (10:49)
[2021-09-21] MEDS: LISINOPRIL 20 MG TAB PO SCH (10:50)
[2021-09-21] MEDS: NIFEdipine ER 30 MG TAB PO SCH (10:50)
[2021-09-21 13:00] VITALS: BP 131/71
[2021-09-21] MEDS ORDERED: DOXY-332 PO (14:30)
[2021-09-21 16:48] VITALS: BP 132/72
[2021-09-21 17:00] VITALS: BP 92/55
== END 2021-09-21 19:45 | disposition home or self-care (01) | DRG 729 ==
LOC: ER 13:16 → CENTRAL 23:01 → TELE-CENTR 09-21 06:31 → CENTRAL 09-21 07:00
PROVIDERS: ADMIT Internal Medicine; ATTEND Internal Medicine Pulmonary Disease
DX: N43.3 Hydrocele, unspecified (principal); E44.0 Moderate protein-calorie malnutrition; N13.8 Other obstructive and reflux uropathy; N13.6 Pyonephrosis; N45.1 Epididymitis; D50.9 Iron deficiency anemia, unspecified; I12.9 Hypertensive chronic kidney disease with stage 1 through stage 4 chronic kidney disease, or unspecified chronic kidney disease; N21.0 Calculus in bladder; N18.9 Chronic kidney disease, unspecified; N32.0 Bladder-neck obstruction; N40.1 Benign prostatic hyperplasia with lower urinary tract symptoms; Z85.46 Personal history of malignant neoplasm of prostate; Z68.23 Body mass index [BMI] 23.0-23.9, adult; Z79.899 Other long term (current) drug therapy; Z86.73 Personal history of transient ischemic attack (TIA), and cerebral infarction without residual deficits; Z87.442 Personal history of urinary calculi; Z90.79 Acquired absence of other genital organ(s); Z91.018 Allergy to other foods; Z20.822 Contact with and (suspected) exposure to COVID-19
CPT/HCPCS: 36415; 74177; 76870; 78306; 80048; 80053; 81001; 82378; 83605; 83615; 84154; 85025; 85610; 85730; 86301; 86850; 86900; 86901; 87081; 87086; 96361; 96365; 96367; G0378; J0696; J1956; J3490

== ENCOUNTER 2021-10-05 18:54 | Emergency (ER) | payer OTHER, MEDICAID ==
[~2021-10-05] VITALS: Ht 172.7 cm; Wt 71.2 kg
[~2021-10-05 18:54] MED LIST changes: +DOXY-332 PO
[2021-10-05 20:58] LABS: Urine Bacteria NONE SEEN /hpf (None Seen); Urine Blood 3+ /uL (Negative); Urine Hyaline Cast FEW /lpf (0 - 2); Urine Mucus FEW (None Seen); Urine Specific Gravity 1.019 (1.001-1.035); Urine WBC 873 /hpf (0 - 3); Urine WBC Clumps PRESENT /hpf (None Seen)
[2021-10-05 21:30] LABS: Basophils # (auto) 0.1 10 ^3/uL (0-0.2); Eosinophils # (auto) 0.1 10 ^3/uL (0-0.8); Eosinophils % (auto) 1.4 % (0.0-7.0); Hematocrit 38.4 % (41.0-53.0); Hemoglobin 13.2 g/dL (13.5-17.5); Lymphocytes % (auto) 10.7 % (10.0-50.0); Mean Corpuscular Hemoglobin 30.5 pg (28.0-32.0); Mean Corpuscular Hgb Conc. 34.3 g/dL (32.0-36.0); Monocytes % (auto) 10.4 % (0.0-12.0); Neutrophils # (auto) 7.2 10 ^3/uL (1.6-8.6); Neutrophils % (auto) 76.5 % (37.0-80.0); Nucleated Red Blood Cells % 0.1 %; Red Blood Cells 4.32 10^6/uL (4.5-5.90); White Blood Cell 9.5 10^3/uL (4.4-10.8)
[2021-10-05 21:54] LABS: Albumin 3.4 g/dL (3.4-5.0); Calcium 10.5 mg/dL (8.5-10.1); Potassium 3.9 mmol/L (3.5-5.1)
[2021-10-05 21:56] LABS: BUN/Creatinine Ratio 14.6
[2021-10-05 21:59] LABS: Bilirubin, Total 0.4 mg/dL (0.2-1.0); Total Protein 8.3 g/dL (6.4-8.2)
[2021-10-05] MEDS ORDERED: CIPROFLOXACIN HCL 500 MG TAB PO ONE (22:30)
[2021-10-06] MEDS ORDERED: LEVO500T31 PO ×2 (00:29→00:30)
[2021-10-06 00:50] VITALS: BP 132/80
== END 2021-10-06 01:02 | disposition home or self-care (01) ==
LOC: ER 18:54
DX: N39.0 Urinary tract infection, site not specified (principal); N45.1 Epididymitis; I12.9 Hypertensive chronic kidney disease with stage 1 through stage 4 chronic kidney disease, or unspecified chronic kidney disease; N18.9 Chronic kidney disease, unspecified; Z86.73 Personal history of transient ischemic attack (TIA), and cerebral infarction without residual deficits; Z79.899 Other long term (current) drug therapy; Z91.018 Allergy to other foods
CPT/HCPCS: 36415; 74176; 76870; 80053; 81001; 83880; 85025

== ENCOUNTER 2023-12-02 17:59 | Inpatient (IN) | payer OTHER, MEDICAID ==
[~2023-12-02] VITALS: Ht 172.7 cm; Wt 67.8 kg
[~2023-12-02 17:59] MED LIST changes: -DOXY-332 PO; +DOXY-448 PO; +LABE200T33 PO; -LABE200T7 PO; -LEVE500T32 PO; +LEVE500T40 PO; +LEVO500T31 PO; -NIFE90TA49 PO; +NIFE90TA75 PO
[2023-12-02] MEDS: SODIUM CHLORIDE 0.9% 1,000 ML IV ONE (21:00)
[2023-12-02 21:17] LABS: Urine Amorphous Crystal FEW /hpf (None Seen); Urine Bacteria FEW /hpf (None Seen); Urine Blood 1+ /uL (Negative); Urine Budding Yeast MANY /hpf (None Seen); Urine Clarity Ex.Turbid (Clear); Urine Color Brown (Yellow); Urine Protein, UAD 3+ (Negative); Urine Specific Gravity 1.014 (1.001-1.035); Urine Urobilinogen Normal (Negative); Urine WBC 825 /hpf (0 - 3); Urine WBC Clumps PRESENT /hpf (None Seen); Urine pH 8.5 (5.0-9.0)
[2023-12-02 21:36] LABS: Basophils # (auto) 0 10 ^3/uL (0-0.2); Basophils % (auto) 0.3 % (0.0-2.0); Eosinophils # (auto) 0 10 ^3/uL (0-0.8); Eosinophils % (auto) 0.2 % (0.0-7.0); Hematocrit 41.9 % (41.0-53.0); Hemoglobin 13.9 g/dL (13.5-17.5); Lymphocytes # (auto) 0.9 10 ^3/uL (0.4-5.4); Lymphocytes % (auto) 12.8 % (10.0-50.0); Mean Corpuscular Hemoglobin 31.8 pg (28.0-32.0); Mean Corpuscular Hgb Conc. 33.2 g/dL (32.0-36.0); Mean Corpuscular Volume 95.7 fL (80.0-100.0); Monocytes # (auto) 0.7 10 ^3/uL (0-1.3); Monocytes % (auto) 10.7 % (0.0-12.0); Neutrophils # (auto) 5.1 10 ^3/uL (1.6-8.6); Nucleated Red Blood Cells % 0.1 %; Red Blood Cells 4.38 10^6/uL (4.5-5.90); Red Cell Distribution Width 14.3 % (11.8-14.3); White Blood Cell 6.8 10^3/uL (4.4-10.8)
[2023-12-02 21:37] LABS: Chloride 114 mmol/L (98-107); Potassium 3.9 mmol/L (3.5-5.1); Sodium 142 mmol/L (136-145)
[2023-12-02 21:38] LABS: Anion Gap 8 (5-15); Calcium 10.1 mg/dL (8.7-10.4); Carbon Dioxide 20 mmol/L (20-30)
[2023-12-02 21:43] LABS: BUN/Creatinine Ratio 14.3 (10.0-20.0); Blood Urea Nitrogen 25 mg/dL (9-23); Glucose 100 mg/dL (74-106)
[2023-12-02] MEDS: cefTRIAXone 1GM/50ML D5W 50 ML IV ONE (22:28)
[2023-12-02] MEDS ORDERED: DOCUSATE SOD 100 MG CAP PO PRN (23:45)
[2023-12-02] MEDS ORDERED: NITROGLYCERIN 0.4 MG SL TAB SL PRN (23:45)
[2023-12-02] MEDS ORDERED: MORPHINE SULFATE INJ 2 MG/ml SYRG IV PRN (23:45)
[2023-12-02] MEDS ORDERED: ACETAMINOPHEN 325 MG TAB PO PRN (23:45)
[2023-12-02] MEDS ORDERED: ONDANSETRON HCL 4 MG/2 ML VIAL IV PRN (23:45)
[2023-12-03] VITALS (8 sets, daily range): BP systolic 135–179; BP diastolic 63–88; PULSE 70–83; RESP 20; TEMP 98.1–98.8; O2SAT 94–99
[2023-12-03] MEDS: SODIUM CHLORIDE 0.9% 1,000 ML IV SCH (00:09)
[2023-12-03 06:13] LABS: Basophils # (auto) 0 10 ^3/uL (0-0.2); Basophils % (auto) 0.4 % (0.0-2.0); Eosinophils # (auto) 0 10 ^3/uL (0-0.8); Eosinophils % (auto) 0.6 % (0.0-7.0); Hematocrit 38.8 % (41.0-53.0); Hemoglobin 13.3 g/dL (13.5-17.5); Lymphocytes # (auto) 1.4 10 ^3/uL (0.4-5.4); Lymphocytes % (auto) 22.2 % (10.0-50.0); Mean Corpuscular Hemoglobin 32.5 pg (28.0-32.0); Mean Corpuscular Hgb Conc. 34.3 g/dL (32.0-36.0); Mean Corpuscular Volume 94.8 fL (80.0-100.0); Monocytes # (auto) 0.8 10 ^3/uL (0-1.3); Monocytes % (auto) 12.8 % (0.0-12.0); Nucleated Red Blood Cells % 0.1 %; Red Blood Cells 4.09 10^6/uL (4.5-5.90); Red Cell Distribution Width 13.7 % (11.8-14.3); White Blood Cell 6.3 10^3/uL (4.4-10.8)
[2023-12-03 06:33] LABS: Alkaline Phosphatase 69 U/L (46-116); Anion Gap 10 (5-15); Aspartate Aminotransferase 8 U/L (13-40); BUN/Creatinine Ratio 13.4 (10.0-20.0); Bilirubin, Total 0.8 mg/dL (0.2-1.0); Blood Urea Nitrogen 20 mg/dL (9-23); Calcium 9.5 mg/dL (8.7-10.4); Carbon Dioxide 20 mmol/L (20-30); Chloride 114 mmol/L (98-107); Glucose 87 mg/dL (74-106); Potassium 3.3 mmol/L (3.5-5.1); Sodium 144 mmol/L (136-145)
[2023-12-03 06:34] LABS: Alanine Aminotransferase 9 U/L (7-40); Total Protein 6.4 g/dL (5.7-8.2)
[2023-12-03] MEDS: MULTIPLE VITAMIN TAB PO SCH (09:02)
[2023-12-03] MEDS: HYDROcodone-ACET 5/325MG TAB PO PRN (09:06)
[2023-12-03] MEDS: ASPirin 81 mg TAB PO SCH (09:06)
[2023-12-03] MEDS: levETIRAcetam 500 mg/100ml 100 ML IV SCH (09:51)
[2023-12-03] MEDS: hydrALAZINE HCL 20 MG/ML VL IV PRN (16:30)
[2023-12-03] MEDS: cefTRIAXone 1GM/50ML D5W 50 ML IV SCH (20:35)
[2023-12-03] MEDS: ATORVASTATIN 20 MG TAB PO SCH (21:25)
[2023-12-04] VITALS (7 sets, daily range): BP systolic 153–181; BP diastolic 80–97; PULSE 72–111; RESP 18–22; TEMP 98–99.4; O2SAT 91–98
[2023-12-04 08:01] LABS: Chloride 112 mmol/L (98-107); Potassium 3.2 mmol/L (3.5-5.1); Sodium 144 mmol/L (136-145)
[2023-12-04 08:02] LABS: Anion Gap 8 (5-15); Calcium 9.6 mg/dL (8.7-10.4); Carbon Dioxide 24 mmol/L (20-30)
[2023-12-04 08:07] LABS: Glucose 89 mg/dL (74-106)
[2023-12-04 08:09] LABS: Phosphorus 2.1 mg/dL (2.4-5.1)
[2023-12-04 09:03] LABS: Uric Acid 5.2 mg/dL (3.7-9.2)
[2023-12-04 09:04] LABS: BUN/Creatinine Ratio 14.7 (10.0-20.0); Blood Urea Nitrogen 17 mg/dL (9-23)
[2023-12-04] MEDS: POTASSIUM CHL 20 Meq TABLET PO ONE (12:19)
[2023-12-04 12:31] LABS: Hematocrit 39.6 % (41.0-53.0); Hemoglobin 13.5 g/dL (13.5-17.5); Mean Corpuscular Hemoglobin 32.2 pg (28.0-32.0); Mean Corpuscular Hgb Conc. 34.1 g/dL (32.0-36.0); Mean Corpuscular Volume 94.5 fL (80.0-100.0); Red Blood Cells 4.19 10^6/uL (4.5-5.90); Red Cell Distribution Width 14.1 % (11.8-14.3); White Blood Cell 6.3 10^3/uL (4.4-10.8)
[2023-12-04 12:39] LABS: Basophils % (manual) 0 (0.0-2.0); Blast Cells 0; Metamyelocytes % 0; Myelocytes % 0; Promyelocytes % 0; Reactive Lymphocytes 0
[2023-12-04 13:03] LABS: Band Neutrophils % (manual) 2; Eosinophils % (manual) 2 (0-7); Lymphocytes % (manual) 21 (10.0-50.0); Monocytes % (manual) 15 (0-12)
[2023-12-04 13:04] LABS: Platelet Estimate Adequate; RBC Morphology Normal
[2023-12-04] MEDS: LABETALOL HCL 200 MG TAB PO SCH (22:06)
[2023-12-05] VITALS (7 sets, daily range): BP systolic 121–159; BP diastolic 70–85; PULSE 77–89; RESP 17–20; TEMP 97.9–99.7; O2SAT 96–97
[2023-12-05] MEDS: NIFEdipine ER 30 MG TAB PO SCH (06:00)
[2023-12-05 16:49] LABS: COVID19 ANTIGEN SOFIA FIA NEGATIVE (NEGATIVE)
[2023-12-06 05:00] VITALS: BP 139/77; PULSE 74; RESP 17; TEMP 98.9; O2SAT 99
[2023-12-06 09:02] VITALS: BP 153/84; PULSE 85; RESP 18; TEMP 98.6; O2SAT 98
[2023-12-06 13:53] VITALS: BP 117/75; PULSE 75; RESP 19; TEMP 97.8; O2SAT 98
[2023-12-06 16:16] VITALS: BP 117/75; PULSE 75; RESP 19; TEMP 97.8; O2SAT 98
[2023-12-06 17:08] VITALS: BP 137/71; PULSE 82; RESP 19; TEMP 98.4; O2SAT 97
== END 2023-12-06 19:19 | DRG 689 ==
LOC: ER 17:59 → OVERFLOW 23:39 → WEST WING 23:39
PROVIDERS: ADMIT Nurse Practitioner Family; ATTEND Family Medicine
PROC: 05H933Z Insertion of Infusion Device into Right Brachial Vein, Percutaneous Approach (ICD-10-PCS; principal; 2023-12-05)
PROC: B54MZZA Ultrasonography of Right Upper Extremity Veins, Guidance (ICD-10-PCS; 2023-12-05)
DX: N30.00 Acute cystitis without hematuria (principal); N17.0 Acute kidney failure with tubular necrosis; N40.1 Benign prostatic hyperplasia with lower urinary tract symptoms; E78.00 Pure hypercholesterolemia, unspecified; G40.909 Epilepsy, unspecified, not intractable, without status epilepticus; I12.9 Hypertensive chronic kidney disease with stage 1 through stage 4 chronic kidney disease, or unspecified chronic kidney disease; I25.10 Atherosclerotic heart disease of native coronary artery without angina pectoris; N18.32 Chronic kidney disease, stage 3b; R31.0 Gross hematuria; N21.0 Calculus in bladder; R33.8 Other retention of urine; Z79.899 Other long term (current) drug therapy; Z90.79 Acquired absence of other genital organ(s); Z86.73 Personal history of transient ischemic attack (TIA), and cerebral infarction without residual deficits
CPT/HCPCS: 36415; 74176; 76775; 80048; 80053; 81001; 82306; 83605; 84100; 84443; 84550; 85007; 85025; 85027; 87040; 87086; 87088; 87186; 87426; 97110; 97116; 97163; G0378

== ENCOUNTER 2023-12-16 20:36 | Inpatient (IN) | payer OTHER, MEDICAID ==
[~2023-12-16] VITALS: Ht 172.7 cm; Wt 69.1 kg
[2023-12-16 21:52] LABS: Basophils # (auto) 0 10 ^3/uL (0-0.2); Basophils % (auto) 0.5 % (0.0-2.0); Eosinophils # (auto) 0.1 10 ^3/uL (0-0.8); Eosinophils % (auto) 0.9 % (0.0-7.0); Hematocrit 30.7 % (41.0-53.0); Hemoglobin 10.2 g/dL (13.5-17.5); Lymphocytes # (auto) 1.1 10 ^3/uL (0.4-5.4); Lymphocytes % (auto) 13.1 % (10.0-50.0); Mean Corpuscular Hemoglobin 31.8 pg (28.0-32.0); Mean Corpuscular Hgb Conc. 33.4 g/dL (32.0-36.0); Mean Corpuscular Volume 95.1 fL (80.0-100.0); Monocytes # (auto) 0.8 10 ^3/uL (0-1.3); Monocytes % (auto) 9.5 % (0.0-12.0); Neutrophils # (auto) 6.3 10 ^3/uL (1.6-8.6); Nucleated Red Blood Cells % 0.1 %; Red Blood Cells 3.22 10^6/uL (4.5-5.90); Red Cell Distribution Width 14.1 % (11.8-14.3); White Blood Cell 8.3 10^3/uL (4.4-10.8)
[2023-12-16 21:53] LABS: Alanine Aminotransferase 23 U/L (7-40); Alkaline Phosphatase 75 U/L (46-116); Anion Gap 12 (5-15); Aspartate Aminotransferase 15 U/L (13-40); BUN/Creatinine Ratio 13.2 (10.0-20.0); Blood Urea Nitrogen 26 mg/dL (9-23); Calcium 9.4 mg/dL (8.7-10.4); Carbon Dioxide 19 mmol/L (20-30); Chloride 110 mmol/L (98-107); Glucose 128 mg/dL (74-106); Potassium 4.2 mmol/L (3.5-5.1); Sodium 141 mmol/L (136-145)
[2023-12-16 21:54] LABS: Albumin 3.5 g/dL (3.2-4.8); Bilirubin, Total 0.3 mg/dL (0.2-1.0); Total Protein 5.5 g/dL (5.7-8.2)
[2023-12-16 22:30] VITALS: PULSE 78; RESP 18; O2SAT 97
[2023-12-16] MEDS ORDERED: ACETAMINOPHEN 325 MG TAB PO PRN (22:45)
[2023-12-16] MEDS ORDERED: ONDANSETRON HCL 4 MG/2 ML VIAL IV PRN (22:45)
[2023-12-16] MEDS: SODIUM CHLORIDE 0.9% 1,000 ML IV ONE (23:08)
[2023-12-16] MEDS ORDERED: NITROGLYCERIN 0.4 MG SL TAB SL PRN (23:45)
[2023-12-16] MEDS ORDERED: MORPHINE SULFATE INJ 2 MG/ml SYRG IV PRN (23:45)
[2023-12-17] VITALS (8 sets, daily range): BP systolic 92–148; BP diastolic 50–68; PULSE 61–82; RESP 16–18; TEMP 97.8–98.6; O2SAT 93–99
[2023-12-17 02:54] LABS: Amphetamine Screen, Urine Neg (NEGATIVE); Barbiturate Scree,Urine Neg (NEGATIVE); Benzodiazephine Screen, Urine Neg (NEGATIVE); Cannabinoid Screen, Urine Neg (NEGATIVE); Cocaine Screen, Urine Neg (NEGATIVE); Opiate Scree,Urine Neg (NEGATIVE); Phencyclidine Screen, Urine Neg (NEGATIVE)
[2023-12-17 06:01] LABS: Basophils # (auto) 0.1 10 ^3/uL (0-0.2); Basophils % (auto) 0.6 % (0.0-2.0); Eosinophils # (auto) 0.1 10 ^3/uL (0-0.8); Eosinophils % (auto) 1.8 % (0.0-7.0); Hematocrit 27.6 % (41.0-53.0); Hemoglobin 9.5 g/dL (13.5-17.5); Lymphocytes # (auto) 1.6 10 ^3/uL (0.4-5.4); Lymphocytes % (auto) 20.5 % (10.0-50.0); Mean Corpuscular Hemoglobin 32.6 pg (28.0-32.0); Mean Corpuscular Hgb Conc. 34.6 g/dL (32.0-36.0); Mean Corpuscular Volume 94.2 fL (80.0-100.0); Monocytes # (auto) 0.8 10 ^3/uL (0-1.3); Monocytes % (auto) 10.1 % (0.0-12.0); Neutrophils # (auto) 5.2 10 ^3/uL (1.6-8.6); Nucleated Red Blood Cells % 0.1 %; Red Blood Cells 2.93 10^6/uL (4.5-5.90); Red Cell Distribution Width 13.9 % (11.8-14.3); White Blood Cell 7.8 10^3/uL (4.4-10.8)
[2023-12-17 06:17] LABS: Alanine Aminotransferase 22 U/L (7-40); Alkaline Phosphatase 77 U/L (46-116); Anion Gap 9 (5-15); BUN/Creatinine Ratio 14.7 (10.0-20.0); Blood Urea Nitrogen 26 mg/dL (9-23); Calcium 8.9 mg/dL (8.7-10.4); Carbon Dioxide 23 mmol/L (20-30); Chloride 111 mmol/L (98-107); Glucose 88 mg/dL (74-106); Sodium 143 mmol/L (136-145)
[2023-12-17 06:18] LABS: Albumin 3.2 g/dL (3.2-4.8); Aspartate Aminotransferase 13 U/L (13-40); Bilirubin, Total 0.3 mg/dL (0.2-1.0); Total Protein 5.1 g/dL (5.7-8.2)
[2023-12-17] MEDS: SODIUM CHLOR 0.9% PF (SALINE LOCK) 10ML VIAL/SYR IV SCH (06:21)
[2023-12-17] MEDS: MORPHINE SULFATE INJ 2 MG/ml SYRG IV PRN (08:18)
[2023-12-17] MEDS: levETIRAcetam 500 mg/100ml 100 ML IV SCH (09:49)
[2023-12-17] MEDS: SODIUM CHLORIDE 0.9% 1,000 ML IV SCH (10:00)
[2023-12-17] MEDS: TAMSULOSIN HYDROCHLORIDE 0.4 MG CAP PO SCH (18:44)
[2023-12-17] MEDS: ATORVASTATIN 20 MG TAB PO SCH (22:30)
[2023-12-18] VITALS (8 sets, daily range): BP systolic 115–161; BP diastolic 66–85; PULSE 70–87; RESP 17–21; TEMP 98–99.7; O2SAT 95–99
[2023-12-18 06:44] LABS: Chloride 109 mmol/L (98-107); Potassium 4.5 mmol/L (3.5-5.1); Sodium 144 mmol/L (136-145)
[2023-12-18 06:45] LABS: Anion Gap 8 (5-15); Carbon Dioxide 27 mmol/L (20-30)
[2023-12-18 06:46] LABS: Calcium 9.3 mg/dL (8.7-10.4)
[2023-12-18 06:50] LABS: BUN/Creatinine Ratio 11.5 (10.0-20.0); Blood Urea Nitrogen 16 mg/dL (9-23); Glucose 83 mg/dL (74-106)
[2023-12-19] VITALS (7 sets, daily range): BP systolic 104–148; BP diastolic 71–88; PULSE 71–105; RESP 17–19; TEMP 97.7–98.4; O2SAT 95–99
[2023-12-19 06:42] LABS: Basophils # (auto) 0 10 ^3/uL (0-0.2); Basophils % (auto) 0.7 % (0.0-2.0); Eosinophils # (auto) 0.1 10 ^3/uL (0-0.8); Eosinophils % (auto) 1.8 % (0.0-7.0); Hematocrit 29.5 % (41.0-53.0); Hemoglobin 10.2 g/dL (13.5-17.5); Lymphocytes # (auto) 1.6 10 ^3/uL (0.4-5.4); Lymphocytes % (auto) 26.1 % (10.0-50.0); Mean Corpuscular Hemoglobin 32.4 pg (28.0-32.0); Mean Corpuscular Hgb Conc. 34.6 g/dL (32.0-36.0); Mean Corpuscular Volume 93.4 fL (80.0-100.0); Monocytes # (auto) 0.8 10 ^3/uL (0-1.3); Monocytes % (auto) 14.1 % (0.0-12.0); Neutrophils # (auto) 3.4 10 ^3/uL (1.6-8.6); Neutrophils % (auto) 57.3 % (37.0-80.0); Nucleated Red Blood Cells % 0.1 %; Red Blood Cells 3.15 10^6/uL (4.5-5.90); Red Cell Distribution Width 13.9 % (11.8-14.3)
[2023-12-19 06:55] LABS: Alanine Aminotransferase 23 U/L (7-40); Albumin 3.7 g/dL (3.2-4.8); Alkaline Phosphatase 66 U/L (46-116); Anion Gap 8 (5-15); Aspartate Aminotransferase 13 U/L (13-40); Bilirubin, Total 0.4 mg/dL (0.2-1.0); Blood Urea Nitrogen 15 mg/dL (9-23); Calcium 9.1 mg/dL (8.7-10.4); Carbon Dioxide 25 mmol/L (20-30); Chloride 110 mmol/L (98-107); Glucose 83 mg/dL (74-106); Potassium 3.9 mmol/L (3.5-5.1); Sodium 143 mmol/L (136-145); Total Protein 5.7 g/dL (5.7-8.2)
[2023-12-19] MEDS: SODIUM CHLORIDE 0.9% 1,000 ML IV SCH (10:46)
[2023-12-19] MEDS: HYDROcodone-ACET 5/325MG TAB PO PRN (12:05)
[2023-12-19] MEDS: DOCUSATE SOD 100 MG CAP PO PRN (12:10)
[2023-12-19] MEDS: hydrALAZINE HCL 20 MG/ML VL IV PRN (15:27)
[2023-12-20] VITALS (9 sets, daily range): BP systolic 124–160; BP diastolic 70–95; PULSE 81–119; RESP 18–20; TEMP 97.7–98.8; O2SAT 96–100
[2023-12-20 06:17] LABS: INR 1.04 (0.9-1.15); Partial Thromboplastin Time 24.4 SEC (24.5-34.5)
[2023-12-20] MEDS ORDERED: fentaNYL CITRATE 100 MCG/2 ML VL ONE (13:30)
[2023-12-20] MEDS ORDERED: KETAMINE 50mg/ML 1ml syringe ONE (13:30)
[2023-12-20] MEDS ORDERED: MIDAZOLAM HCL 2MG/2ML 2ml VIAL (1mg/ml) ONE (13:30)
[2023-12-20] MEDS ORDERED: LIDOCAINE 1% INJ PF 5ML AMP ONE (13:30)
[2023-12-20] MEDS ORDERED: SODIUM CHLORIDE LOCK 10 ML ONE (13:31)
[2023-12-20] MEDS ORDERED: ONDANSETRON HCL 4 MG/2 ML VIAL ONE (13:31)
[2023-12-20] MEDS ORDERED: DexAMETHasone SOD PHOS 10MG/1ML VIAL INJ ONE (13:31)
[2023-12-20] MEDS ORDERED: PROPOFOL 10 MG/ML 20 ML IV ONE (13:31)
[2023-12-20] MEDS: CIPROFLOXACIN 400MG/200ML 200 ML IV ONE (14:28)
[2023-12-20] MEDS ORDERED: fentaNYL CITRATE 100 MCG/2 ML VL IV PRN (15:45)
[2023-12-20] MEDS ORDERED: MORPHINE SULFATE INJ 2 MG/ml SYRG IV PRN (15:45)
[2023-12-20] MEDS: METOCLOPRAMIDE HCL 5MG/ml INJ 2ml VIAL IV ONE (15:45)
[2023-12-20] MEDS ORDERED: HYDROmorphone HCL 2 MG/ML VL/or syr IV PRN ×2 (15:45)
[2023-12-20 16:23] LABS: Basophils # (auto) 0 10 ^3/uL (0-0.2); Basophils % (auto) 0.9 % (0.0-2.0); Eosinophils # (auto) 0.1 10 ^3/uL (0-0.8); Eosinophils % (auto) 2.4 % (0.0-7.0); Hematocrit 31.7 % (41.0-53.0); Hemoglobin 10.7 g/dL (13.5-17.5); Lymphocytes # (auto) 1.1 10 ^3/uL (0.4-5.4); Lymphocytes % (auto) 22.9 % (10.0-50.0); Mean Corpuscular Hgb Conc. 33.7 g/dL (32.0-36.0); Monocytes # (auto) 0.9 10 ^3/uL (0-1.3); Monocytes % (auto) 17.9 % (0.0-12.0); Neutrophils # (auto) 2.7 10 ^3/uL (1.6-8.6); Neutrophils % (auto) 55.9 % (37.0-80.0); Nucleated Red Blood Cells % 0.3 %; Red Blood Cells 3.34 10^6/uL (4.5-5.90); White Blood Cell 4.8 10^3/uL (4.4-10.8)
[2023-12-21 05:00] VITALS: BP 152/84; PULSE 89; RESP 16; TEMP 97.4; O2SAT 99
[2023-12-21 08:00] VITALS: PULSE 101; PULSE 92; RESP 18; O2SAT 98
[2023-12-21 09:14] VITALS: BP 134/85; PULSE 92; RESP 18; TEMP 98.3; O2SAT 98
[2023-12-21 10:26] LABS: Urine Bacteria FEW /hpf (None Seen); Urine Blood 3+ /uL (Negative); Urine Clarity Turbid (Clear); Urine Color Light-Yellow (Yellow); Urine Mucus FEW (None Seen); Urine Protein, UAD 2+ (Negative); Urine Specific Gravity 1.013 (1.001-1.035); Urine Urobilinogen Normal (Negative); Urine WBC 54 /hpf (0 - 3)
[2023-12-21 10:51] LABS: COVID19 ANTIGEN SOFIA FIA NEGATIVE (NEGATIVE)
[2023-12-21] MEDS: cefTRIAXone 1GM/50ML D5W 50 ML IV ONE (11:35)
[2023-12-21 13:00] VITALS: BP 139/83; PULSE 94; RESP 16; TEMP 98.1; O2SAT 99
[2023-12-21 17:00] VITALS: BP 149/82; PULSE 100; RESP 24; TEMP 97.5; O2SAT 87
[2023-12-21 18:14] VITALS: BP 149/82; PULSE 100; RESP 24; TEMP 97.5; O2SAT 97
[2023-12-22] MEDS ORDERED: cefTRIAXone 1GM/50ML D5W 50 ML IV SCH (09:00)
== END 2023-12-21 18:35 | DRG 665 ==
LOC: EDBD 20:36 → ER 20:36 → TELE 23:35 → TELE-WESTW 12-17 02:48
PROVIDERS: ADMIT Family Medicine; ATTEND Family Medicine
PROC: 0TCB8ZZ Extirpation of Matter from Bladder, Via Natural or Artificial Opening Endoscopic (ICD-10-PCS; 2023-12-20)
PROC: 0V508ZZ Destruction of Prostate, Via Natural or Artificial Opening Endoscopic (ICD-10-PCS; principal; 2023-12-20 14:27)
DX: T83.518A Infection and inflammatory reaction due to other urinary catheter, initial encounter (principal); G93.41 Metabolic encephalopathy; N17.9 Acute kidney failure, unspecified; N13.8 Other obstructive and reflux uropathy; N39.0 Urinary tract infection, site not specified; N40.1 Benign prostatic hyperplasia with lower urinary tract symptoms; R31.0 Gross hematuria; D64.9 Anemia, unspecified; E78.00 Pure hypercholesterolemia, unspecified; F03.90 Unspecified dementia, unspecified severity, without behavioral disturbance, psychotic disturbance, mood disturbance, and anxiety; I12.9 Hypertensive chronic kidney disease with stage 1 through stage 4 chronic kidney disease, or unspecified chronic kidney disease; I35.0 Nonrheumatic aortic (valve) stenosis; N18.31 Chronic kidney disease, stage 3a; R33.8 Other retention of urine; N20.0 Calculus of kidney; N28.89 Other specified disorders of kidney and ureter; N32.89 Other specified disorders of bladder; N21.0 Calculus in bladder; Z79.899 Other long term (current) drug therapy; Z86.73 Personal history of transient ischemic attack (TIA), and cerebral infarction without residual deficits; Z90.79 Acquired absence of other genital organ(s)
CPT/HCPCS: 36415; 71045; 74176; 80048; 80053; 80307; 81001; 82140; 82360; 83605; 85025; 85610; 85730; 86850; 86900; 86901; 87081; 87086; 87088; 87186; 87426; 93005; 93306; 96360; 97163; 99291; G0378; J1100; J2250; J2405; J2704

== ENCOUNTER 2024-03-28 23:51 | Emergency (ER) | payer MEDICARE, MEDICAID ==
[~2024-03-28] VITALS: Ht 172.7 cm; Wt 54.5 kg
[~2024-03-28 23:51] MED LIST changes: -DOXY-448 PO; +DOXY100C79 PO
[2024-03-29 00:21] VITALS: BP 136/82; PULSE 89; RESP 18; O2SAT 96
--- NOTE | 2024-03-29 01:14 | ED.PDOC ---
History of Present Illness HPI Comments 79 y/o M presents with spouse for c/o urine retention, hematuria, non-radiating, suprapubic abdominal pain, and Daniel catheter obstruction for 2 days. Per spouse, patient endorses on patient's Daniel catheter no longer draining, with exception of some droplets of urine and "blood," for the past couple of days. Patient is stated to be due for his Daniel catheter to be replaced by a home health nurse but has, yet, to receive care. Patient is stated to have had catheter placed during last hospitalization and SNF placement from a UTI was found with, last time. Patient has additional significant Hx of acute metabolic encephalopathy, [id number] renal failure, BPH, CVA, cystoliths s/p pulse cystolitholapaxy cystoscopy and fulguration, dementia, HLD, HTN, nephrolithiasis, left renal mass, seizures, and UTI's. Patient denies having any nausea, vomiting, weakness, dysuria, or other associated symptoms or modifiers at this time. Chief Complaint: Urinary Time Seen by MD: 00:28 Primary Care Provider: [facility] Notes: Nurses Notes, Medications, Allergies Allergies: Coded Allergies: No Known Drug Allergy (Verified Allergy, Unknown, 06/08/19) Uncoded Allergies: Spicy foods (Allergy, Mild, rash, 10/07/15) Home Meds Active Scripts Levofloxacin (Levaquin) 500 Mg Tab, 500 MG PO DAILY for 10 Days, #10 TAB Prov:TERRENCE RAINEY MD 10/06/21 Doxycycline (Monohydrate) (Doxycycline) 100 Mg Cap, 100 MG PO BID for 10 Days, #20 CAP Prov:ESTRELLITA MARMOLEJO MD 09/21/21 Reported Medications Levetiracetam (Keppra) 500 Mg Tab, 500 MG PO BID for 30 Days, MG 04/09/21 Atorvastatin Calcium (ATORVASTATIN CALCIUM) 80 Mg Tab, 1 TAB PO DAILYPRN 03/13/21 Lisinopril & Hydrochlorothiazi (Lisinopril/Hydrochlorothi) 1 Tab Tab, 1 TAB PO DAILY AT NIGHT 20 -12.5 MG 03/13/21 Labetalol Hcl (Labetalol Hcl) 200 Mg Tab, 2 TAB PO DAILY 06/08/19 Nifedipine (Nifedipine Er) 90 Mg Tab, 90 MG PO DAILY TAKE AT NIGHT 1/17/20 Information Source: Significant Other Mode of Arrival: Wheelchair Severity: Moderate Timing: Days Duration: Since onset Prehospital treatment: None Past Medical History PAST MEDICAL HISTORY: CKF, CVA, Dementia, High Lipids, HTN, Kidney Stones (5-6 mm kidney stone lower pole right kidney), Seizures, UTI'S Past Medical History (Other): acute metabolic encephalopathy, acute on chronic mal failure, BPH, cystoliths, left renal mass Surgical History (Other): pulse cystolitholapaxy cystoscopy and fulguration by Urology Dr. Swanson on 12-20-23; Daniel catheter in place Family History Family History: Unknown Social History Smoker: Non-Smoker Alcohol: Denies ETOH Use Drugs: Denies Drug Use Lives In: Home, Assisted Care Constitutional: denies: chills, diaphoresis, fatigue, fever, malaise, sweats, weakness, others EENTM: denies: blurred vision, double vision, ear bleeding, ear discharge, ear drainage, ear pain, ear ringing, eye pain, eye redness, hearing loss, mouth pain, mouth swelling, nasal discharge, nose bleeding, nose congestion, nose rupali n, photophobia, tearing, throat pain, throat swelling, voice changes, others Respiratory: denies: cough, hemoptysis, orthopnea, SOB at rest, shortness of breath, SOB with excertion, stridor, wheezing, others Cardiovascular: denies: chest pain, dizzy spells, diaphoresis, Dyspnea on exertion, edema, irregular heart beat, left arm pain, lightheadedness, palpitations, PND, syncope, others Gastrointestinal: reports: abdominal pain; denies: abdomen distended, blood streaked bowels, constipated, diarrhea, dysphagia, difficulty swallowing, hematemesis, melena, nausea, poor appetite, poor fluid intake, rectal bleeding, rectal pain, vomiting, others Genitourinary: reports: hematuria, others (urine retention, Daniel catheter obstruction ); denies: burning, dysuria, flank pain, frequency, incontinence, penile discharge, penile sore, pain, testicle pain, testicle swelling, urgency Neurological: denies: dizziness, fainting, headache, left sided numbness, left sided weakness, numbness, paresthesia, pre-existing deficit, right sided numbness, right sided weakness, seizure, speech problems, tingling, tremors, weakness, others Musculoskeletal: denies: back pain, gout, joint pain, joint swelling, muscle pain, muscle stiffness, neck pain, others Integumetry: denies: bruises, change in color, change in hair/nails, dryness, laceration, lesions, lumps, rash, wounds, others Allergic/Immunocompromised: denies: Difficulty Healing, Frequent Infections, Hives, Itching, others Hematologic/Lymphatic: denies: anemia, blood clots, easy bleeding, easy bruising, swollen glands, others Endocrine: denies: excessive hunger, excessive sweating, excessive thirst, excessive urination, flushing, intolerance to cold, intolerance to heat, unexplained weight gain, unexplained weight loss, others Psychiatric: denies: anxiety, bipolar disorder, depression, hopeless, panic disorder, schizophrenia, sleepless, suicidal, others All Other Systems: Reviewed and Negative Physical Exam General Appearance: No Apparent Distress, Thin HEENT: Normal ENT Inspection, Pharynx Normal, TMs Normal Neck: Full Range of Motion, Non-Tender, Normal, Normal Inspection Respiratory: Chest Non-Tender, Lungs Clear, No Accessory Muscle Use, No Respiratory Distress, Normal Breath Sounds Cardiovascular: No Edema, No JVD, No Murmur, No Gallop, Normal Peripheral Pulses, Regular Rate/Rhythm Breast Exam: Deferred Gastrointestinal: No Organomegaly, No Pulsatile Mass, Normal Bowel Sounds, S oft, Suprapubic (tenderness), Tenderness (suprapubic area) Genitalia: Other (Daniel catheter in place ) Pelvic: Deferred Rectal: Deferred Extremities: No calf tenderness, Normal capillary refill, Normal inspection, Normal range of motion, Non-tender, No pedal edema Musculoskeletal : Apperance: Normal Neurologic: Alert, pump press operator II-XII nml as Tested, No Motor Deficits, Normal Affect, Normal Mood, No Sensory Deficits Cerebellar Function: Normal Reflexes: Normal Skin: Dry, Normal Color, Warm Lymphatic: No Adenopathy Was a procedure done? Was a procedure done?: No Differential Dx Considerations may include: post-op complication, Daniel catheter obstruction, UTI X-Ray, Labs, Meds, VS Vital Signs Date Time Temp Pulse Resp B/P (MAP) Pulse Ox O2 Delivery O2 Flow Rate FiO2 03/29/24 00:21 99.1 89 18 136/82 (100) 96 Time of 1ST Reevaluation: 00:58 Reevaluation 1ST: Unchanged Patient Education/Counseling: Diagnosis, Treatment Family Education/Counseling: No Family Present Departure 1 Departure Time of Disposition: 02:39 (Patient had a catheter change. Patient now is draining clear urine and he is feeling better. We will discharge patient home with outpatient follow up) Impression: Primary Impression: Complication, blocked Daniel catheter Qualified Codes: T83.091A - Other mechanical complication of indwelling urethral catheter, initial encounter Disposition: 01 HOME / SELF CARE / HOMELESS Condition: Stable Additional Instructions: Your catheter was exchanged in the ER today. It is important to follow up with the regular doctors. Discharged With: Spouse Critical Care Note Critical Care Time?: No Stability Stability form required: No Heart Score Heart Score: Heart Score Response (Comments) Value History N/A 0 EKG N/A 0 Age N/A 0 Risk Factors N/A 0 Troponin N/A 0 Total 0 I personally scribed for CHALO ARMENTA MD ([email or web address]) on 03/29/24 at 01:14. Electronically submitted by Yimi Wesley ([email or web address]). I personally scribed for CHALO ARMENTA MD ([email or web address]) on 03/29/24 at 01:19. Electronically submitted by Yimi Wesley ([email or web address]). CHALO ARMENTA MD Mar 29, 2024 01:14
== END 2024-03-29 04:00 | disposition home or self-care (01) ==
LOC: ER 23:51
DX: T83.098A Other mechanical complication of other urinary catheter, initial encounter (principal); I12.9 Hypertensive chronic kidney disease with stage 1 through stage 4 chronic kidney disease, or unspecified chronic kidney disease; N18.9 Chronic kidney disease, unspecified; E78.5 Hyperlipidemia, unspecified; F03.90 Unspecified dementia, unspecified severity, without behavioral disturbance, psychotic disturbance, mood disturbance, and anxiety; Z86.73 Personal history of transient ischemic attack (TIA), and cerebral infarction without residual deficits; Z98.890 Other specified postprocedural states; Z79.899 Other long term (current) drug therapy; Y92.89 Other specified places as the place of occurrence of the external cause
CPT/HCPCS: 51702